=== PATIENT | male | born 1995 | race Caucasian/White ===

== ENCOUNTER 2019-01-27 17:27 | Emergency (ER) | payer MEDICAID ==
[~2019-01-27] VITALS: Ht 167.6 cm; Wt 70.0 kg
[2019-01-27 17:28] VITALS: BP 140/98
[2019-01-27] MEDS ORDERED: FLUO-191 PO (17:42)
[2019-01-27] MEDS ORDERED: PRAZ2 PO (17:42)
[2019-01-27] MEDS ORDERED: QUET50TA PO (17:42)
[2019-01-27 17:58] LABS: BASOPHILS % (AUTO) 0.6 % (0.0-2.0); EOSINOPHILS % (AUTO) 3.7 % (1.0-6.0); HEMATOCRIT 38.9 % (41-53); HEMOGLOBIN 13.1 g/dL (13.5-17.5); LYMPHOCYTES # (AUTO) 1.6 K/uL (1.0-4.8); LYMPHOCYTES % (AUTO) 32.4 % (22.0-44.0); MEAN CORPUSCULAR HEMOGLOBIN 30.7 pg (26.0-34.0); MEAN CORPUSCULAR HGB CONC 33.8 G/dL (31.0-37.0); MEAN CORPUSCULAR VOLUME 91 fL (80-100); MONOCYTES # (AUTO) 0.7 K/uL (0.1-1.0); MONOCYTES % (AUTO) 13.9 % (2.0-9.0); NEUTROPHILS # (AUTO) 2.5 K/uL (1.8-7.7); NEUTROPHILS % (AUTO) 49.4 % (40.0-70.0); PLATELET COUNT (AUTO) 188 K/uL (150-450); RED BLOOD CELL COUNT(AUTO) 4.28 MIL/uL (4.50-5.90); RED CELL DISTRIBUTION WIDTH 14.1 % (11.5-14.5)
[2019-01-27 18:11] LABS: GLUCOSE,POINT OF CARE 121 MG/DL (70-110)
[2019-01-27 18:13] LABS: ANION GAP 9 mmol/L (8-16); CALCIUM, TOTAL 8.8 mg/dL (8.8-10.5); CARBON DIOXIDE 28 mmol/L (22-29); CHLORIDE 104 mmol/L (98-107); CREATININE 1.08 mg/dL (0.60-1.30); GLOMERULAR FILTR. RATE CALC > 60 mL/min (>60); GLUCOSE,RANDOM 112 mg/dL (70-110); POTASSIUM 3.8 mmol/L (3.5-5.1); SODIUM SERUM 141 mmol/L (136-145); UREA NITROGEN, BLOOD 17 mg/dL (7-18)
[2019-01-27 18:18] LABS: ALANINE AMINOTRANSFERASE 31 U/L (12-78); ALBUMIN 3.8 g/dL (3.4-5.0); ALKALINE PHOSPHATASE 62 U/L (46-116); ASPARTATE AMINOTRANSFERASE 18 U/L (15-37); BILIRUBIN,TOTAL 0.3 mg/dL (0.1-1.0); TOTAL PROTEIN, SERUM 6.7 g/dL (6.4-8.2)
[2019-01-27 19:08] LABS: AMPHET/METH SCREEN,URINE POSITIVE (NEGATIVE); BARBITURATE SCREEN, URINE NEGATIVE (NEGATIVE); BENZODIAZEPINES SCREEN,URINE NEGATIVE (NEGATIVE); CANNABINOID SCREEN,URINE POSITIVE (NEGATIVE); COCAINE SCREEN,URINE NEGATIVE (NEGATIVE); METHADONE SCREEN, URINE NEGATIVE (NEGATIVE); OPIATE SCREEN,URINE POSITIVE (NEGATIVE)
[2019-01-27 19:09] LABS: PHENCYCLIDINE SCREEN,URINE NEGATIVE (NEGATIVE)
== END 2019-01-27 19:26 | disposition home or self-care (01) ==
LOC: EMS 17:30
DX: R55 Syncope and collapse (principal); F41.9 Anxiety disorder, unspecified; F11.90 Opioid use, unspecified, uncomplicated; F15.90 Other stimulant use, unspecified, uncomplicated; Z79.899 Other long term (current) drug therapy
CPT/HCPCS: 36415; 80053; 80307; 82962; 85025; 93005; 99285; G0480; 82948

== ENCOUNTER 2019-02-10 16:45 | Inpatient (IN) | payer MEDICAID ==
[~2019-02-10] VITALS: Ht 172.7 cm; Wt 63.8 kg
[~2019-02-10 16:45] MED LIST: ATOM25 PO; BUPR-93 PO; BUPR1FIL3 SL; BUPR8TAB4 SL; FLUO-191 PO; GABA-531 PO; PRAZ2 PO; QUET50TA PO; RALT400T PO
[2019-02-10 17:33] VITALS: BP 114/62
[2019-02-10] MEDS: LORazepam 2 MG TABLET PO PRN (18:08)
[2019-02-10] MEDS: HALOPERIDOL 5 MG TABLET PO PRN (18:59)
[2019-02-10] MEDS ORDERED: MAG HYDROX/AL HYDROX/SIMETH ES 30 ML SUSPENSION UDCUP PO PRN (20:00)
[2019-02-10] MEDS ORDERED: ACETAMINOPHEN 325 MG TABLET PO PRN (20:00)
[2019-02-10] MEDS ORDERED: LOPERAMIDE HCL 2 MG CAPSULE PO PRN (20:00)
[2019-02-10] MEDS ORDERED: CloNIDine HCL 0.1 MG TABLET PO PRN (20:00)
[2019-02-10] MEDS ORDERED: PETROLATUM,WHITE 28 GM JELLY TP PRN (20:00)
[2019-02-10] MEDS ORDERED: NICOTINE 14 MG/24 HOUR PATCH TD PRN (20:00)
[2019-02-10] MEDS ORDERED: GuaiFENesin/D-METHORPHAN [SUGAR-FREE] 200-20MG/10 ML SYRUP UDCUP PO PRN (20:00)
[2019-02-10] MEDS ORDERED: MAGNESIUM HYDROXIDE SUSPENSION 30 ML UDCUP PO PRN (20:00)
[2019-02-10] MEDS ORDERED: ONDANSETRON HCL 4 MG TABLET PO PRN (20:00)
[2019-02-10] MEDS ORDERED: IBUPROFEN 400 MG TABLET PO PRN (20:00)
[2019-02-10] MEDS ORDERED: ALBUTEROL SULFATE HFA 90 MCG/PUFF 8 GM INHALER IH PRN (20:00)
[2019-02-10] MEDS: QUEtiapine FUMARATE 300 MG TABLET PO SCH (20:05)
[2019-02-10] MEDS ORDERED: NICOTINE POLACRILEX 2 MG LOZENGE PO PRN (20:15)
[2019-02-10] MEDS: ZOLPIDEM TARTRATE 10 MG TABLET PO PRN (20:55)
[2019-02-11 06:19] VITALS: BP 103/60
[2019-02-11 07:20] LABS: BASOPHILS % (AUTO) 0.6 % (0.0-2.0); EOSINOPHILS % (AUTO) 0.1 % (1.0-6.0); HEMATOCRIT 39.1 % (41-53); HEMOGLOBIN 13.4 g/dL (13.5-17.5); LYMPHOCYTES # (AUTO) 0.9 K/uL (1.0-4.8); LYMPHOCYTES % (AUTO) 42.2 % (22.0-44.0); MEAN CORPUSCULAR HEMOGLOBIN 30.9 pg (26.0-34.0); MEAN CORPUSCULAR HGB CONC 34.3 G/dL (31.0-37.0); MEAN CORPUSCULAR VOLUME 90 fL (80-100); MONOCYTES # (AUTO) 0.2 K/uL (0.1-1.0); MONOCYTES % (AUTO) 11.3 % (2.0-9.0); NEUTROPHILS % (AUTO) 45.8 % (40.0-70.0); PLATELET COUNT (AUTO) 155 K/uL (150-450); RED BLOOD CELL COUNT(AUTO) 4.33 MIL/uL (4.50-5.90); RED CELL DISTRIBUTION WIDTH 13.3 % (11.5-14.5)
[2019-02-11 07:49] LABS: HEMOGLOBIN A1C 5.7 % (4.5-6.2)
[2019-02-11 07:52] LABS: ALANINE AMINOTRANSFERASE 50 U/L (12-78); ALBUMIN 3.2 g/dL (3.4-5.0); ALKALINE PHOSPHATASE 64 U/L (46-116); ANION GAP 5 mmol/L (8-16); ASPARTATE AMINOTRANSFERASE 30 U/L (15-37); BILIRUBIN,TOTAL 0.2 mg/dL (0.1-1.0); CALCIUM, TOTAL 8.8 mg/dL (8.8-10.5); CARBON DIOXIDE 33 mmol/L (22-29); CHLORIDE 100 mmol/L (98-107); CHOL/HDL RATIO 5.1 (4.2-7.3); CHOLESTEROL 113 mg/dL (131-200); CREATININE 0.96 mg/dL (0.60-1.30); GLOMERULAR FILTR. RATE CALC > 60 mL/min (>60); GLUCOSE,RANDOM 95 mg/dL (70-110); HDL CHOLESTEROL 22 mg/dL (40-60); LDL CHOL (CALC.) 43 mg/dL (0-130); POTASSIUM 4.2 mmol/L (3.5-5.1); SODIUM SERUM 138 mmol/L (136-145); THYROID STIMULATING HORMONE 0.71 uIU/mL (0.36-3.74); TOTAL PROTEIN, SERUM 6.1 g/dL (6.4-8.2); TRIGLYCERIDES 240 mg/dL (15-150); UREA NITROGEN, BLOOD 11 mg/dL (7-18)
[2019-02-11] MEDS: FLUoxetine HCL 20 MG CAPSULE PO SCH (09:05)
[2019-02-11] MEDS: BUPRENORPHINE HCL/NALOXONE HCL 8-2 MG SUBLINGUAL TABLET SL SCH (09:06)
[2019-02-11] MEDS: LORazepam 2 MG TABLET PO PRN ×2 (12:02→18:43)
[2019-02-11] MEDS ORDERED: HYDROCORTISONE 1% 30 GM CREAM TP PRN (12:45)
[2019-02-11] MEDS: FOLIC ACID 1 MG TABLET PO SCH (12:58)
[2019-02-11 16:30] VITALS: BP 100/60
[2019-02-11] MEDS: DOCUSATE SODIUM 100 MG CAPSULE PO PRN (18:43)
[2019-02-11] MEDS: QUEtiapine FUMARATE 300 MG TABLET PO SCH (20:11)
[2019-02-11] MEDS: ZOLPIDEM TARTRATE 10 MG TABLET PO PRN (22:23)
[2019-02-12] VITALS: BP 110/68
[2019-02-12] MEDS: LORazepam 2 MG TABLET PO PRN (00:07)
[2019-02-12] MEDS: HALOPERIDOL 5 MG TABLET PO PRN ×3 (00:08→18:48)
[2019-02-12 08:39] VITALS: BP 120/70
[2019-02-12] MEDS ORDERED: ZOLPIDEM TARTRATE 10 MG TABLET PO PRN (09:45)
[2019-02-12] MEDS: FLUoxetine HCL 20 MG CAPSULE PO SCH (09:48)
[2019-02-12] MEDS: BUPRENORPHINE HCL/NALOXONE HCL 8-2 MG SUBLINGUAL TABLET SL SCH (09:48)
[2019-02-12] MEDS: FOLIC ACID 1 MG TABLET PO SCH (09:49)
[2019-02-12] MEDS ORDERED: NICOTINE 14 MG/24 HOUR PATCH TD PRN (10:00)
[2019-02-12 16:19] VITALS: BP 124/77
[2019-02-12] MEDS: HydrOXYzine PAMOATE 25 MG CAPSULE PO PRN (17:30)
[2019-02-12] MEDS: DOCUSATE SODIUM 100 MG CAPSULE PO PRN (19:08)
[2019-02-12] MEDS: QUEtiapine FUMARATE 300 MG TABLET PO SCH (20:29)
[2019-02-13 03:56] VITALS: BP 124/75
[2019-02-13 08:30] VITALS: BP 117/69
[2019-02-13] MEDS: FLUoxetine HCL 20 MG CAPSULE PO SCH (09:07)
[2019-02-13] MEDS: FOLIC ACID 1 MG TABLET PO SCH (09:07)
[2019-02-13] MEDS: BUPRENORPHINE HCL/NALOXONE HCL 8-2 MG SUBLINGUAL TABLET SL SCH (09:07)
[2019-02-13] MEDS: HydrOXYzine PAMOATE 25 MG CAPSULE PO PRN ×2 (12:00→19:42)
[2019-02-13 16:20] VITALS: BP 118/70
[2019-02-13] MEDS: HALOPERIDOL 5 MG TABLET PO PRN (17:16)
[2019-02-13] MEDS ORDERED: DiphenhydrAMINE HCL 50 MG/ML VIAL IM ONE (20:00)
[2019-02-14 00:17] VITALS: BP 110/72
[2019-02-14 08:29] VITALS: BP 95/67
[2019-02-14] MEDS ORDERED: OMEGA-3/DHA/EPA/FISH OIL 1,000 MG CAPSULE PO SCH (09:00)
[2019-02-14] MEDS ORDERED: MULTIVITAMINS WITH MINERALS, THERAPEUTIC TABLET PO SCH (09:00)
[2019-02-14] MEDS: BUPRENORPHINE HCL/NALOXONE HCL 8-2 MG SUBLINGUAL TABLET SL SCH (09:17)
[2019-02-14] MEDS: FLUoxetine HCL 20 MG CAPSULE PO SCH (09:18)
[2019-02-14] MEDS: FOLIC ACID 1 MG TABLET PO SCH (09:18)
[2019-02-14] MEDS ORDERED: FLUO-191 PO (13:06)
== END 2019-02-14 14:15 | disposition home or self-care (01) | DRG 751 ==
LOC: B2X 18:02
DX: F33.2 Major depressive disorder, recurrent severe without psychotic features (principal); D64.9 Anemia, unspecified; E78.5 Hyperlipidemia, unspecified; F15.10 Other stimulant abuse, uncomplicated; T43.92XA Poisoning by unspecified psychotropic drug, intentional self-harm, initial encounter; F43.12 Post-traumatic stress disorder, chronic; D72.819 Decreased white blood cell count, unspecified; Z91.5 Personal history of self-harm; Z79.899 Other long term (current) drug therapy; Z59.0 Homelessness; Y92.89 Other specified places as the place of occurrence of the external cause
CPT/HCPCS: 83036; 84443; 87081; J1200; Q0162